=== PATIENT | female | born 1995 | race Caucasian/White ===

== ENCOUNTER 2021-08-08 22:00 | Emergency (ER) | payer MEDICAID ==
[2021-08-08] MEDS ORDERED: Prochlorperazine 10 MG/2 ML SDV IVPUSH ONE (22:19)
[2021-08-08] MEDS ORDERED: Ketorolac 30 MG/ML SDV IVPUSH ONE (22:19)
[2021-08-08] MEDS ORDERED: Dexamethasone 4 MG/ML SDV IVPUSH ONE (22:19)
[2021-08-08] MEDS ORDERED: Sodium Chloride 0.9% 10 ML Syringe FLUSH PRN (22:19)
[2021-08-08 23:03] LABS: CORONAVIRUS COVID-19 NAA NEGATIVE (NEGATIVE)
== END 2021-08-08 23:17 | disposition home or self-care (01) ==
LOC: JP.ED 22:00
DX: J10.1 Influenza due to other identified influenza virus with other respiratory manifestations (principal); Z20.822 Contact with and (suspected) exposure to COVID-19
CPT/HCPCS: 0241U; 36415; 71045; 80053; 81001; 85025; 86140; 96374; 96375; 99284; J0780; J1100; J1885

== ENCOUNTER 2022-07-28 22:10 | Emergency (ER) | payer MEDICAID | END 2022-07-28 22:44 | disposition home or self-care (01) | LOC: JP.ED 22:10 | DX: K08.89 Other specified disorders of teeth and supporting structures (principal); J45.909 Unspecified asthma, uncomplicated | CPT/HCPCS: 99282; 99283 ==